=== PATIENT | female | born 1940 | race Caucasian/White ===

== ENCOUNTER 2018-08-02 16:16 | Emergency (ER) | payer MEDICARE, SELFPAY ==
[2018-08-02 16:20] VITALS: BP 138/56; PULSE 93; RESP 14; TEMP 37.1; O2SAT 100; BMI 21.2
--- NOTE | 2018-08-02 16:20 | ED.GENADULT ---
HPI - General Adult General Chief complaint: Ear Stated complaint: ear ache, sent by clinic Time Seen by Provider: 08/02/18 16:20 Source: patient Mode of arrival: ambulatory Limitations: no limitations History of Present Illness HPI narrative: 78-year-old female here for evaluation of right ear pain and also a rash to the right side of her face. Patient states the symptoms started about 3-4 days ago. No fevers. She went to the walk-in clinic who sent her here to the emergency department. Upon further evaluation after the exam she also states she has been having a sore throat. Has pain behind her right ear. He has sores in her mouth. Has been having a cough. She does have a history of asthma but has not been having any wheezing. Still tolerating oral intake. She states she has got a rashes started on the right side of her face within the past 24 hours. No eye symptoms. Related Data Previous Rx's Medication Instructions Recorded hydrocodone-acetaminophen [[place]] 1 tab PO Q4-6H PRN #7 tab 08/02/18 prednisone 60 mg PO DAILY 5 Days #15 tab 08/02/18 valacyclovir 1,000 mg PO TID 10 Days #30 tab 08/02/18 Allergies Allergy/AdvReac Type Severity Reaction Status Date / Time Penicillins Allergy Verified 08/02/18 16:24 Sulfa (Sulfonamide Allergy Verified 08/02/18 16:24 Antibiotics) Review of Systems Constitutional Denies fever(s) and Reports headache(s) Eyes Comments: Some irritation to the right eye ENT Ears, Nose, Mouth, and Throat: Denies vertigo, Denies dizziness, Reports headache(s), Denies disequilibrium and Reports sore throat Comments: Pain to the right ear, sores in the throat Cardiovascular Denies chest pain and Denies dyspnea Respiratory Reports cough, Denies dyspnea and Denies wheezing Gastrointestinal Gastrointestinal: Denies abdominal pain, Denies nausea and Denies vomiting Genitourinary Denies dysuria Integumentary/Breasts Comments: Rash on the right side of the face Neurologic Denies vertigo, Denies dizziness, Reports headache(s) and Denies disequilibrium Hematologic/Lymphatic Denies easy bleeding and Denies easy bruising Allergic/Immunologic Denies urticaria and Denies wheezing [facility] Medical History Asthma (Acute) Social History Smoking Status: Unknown if ever smoked Social History Smoking Status: Unknown if ever smoked Exam Initial Vital Signs Initial Vital Signs: Vital Signs Temperature 98.8 F 08/02/18 16:20 Pulse Rate 93 H 08/02/18 16:20 Respiratory Rate 14 08/02/18 16:20 Blood Pressure 138/56 L 08/02/18 16:20 Pulse Oximetry 100 08/02/18 16:20 Const General: cooperative, comfortable, well developed, well groomed and No acute distress Orientation: alert, awake and oriented x3 HENMT Head: normal to inspection and normocephalic Ears: right TM abnormal (Possibly 1 vesicle without erythema) and TM normal on the left Nose: external nose normal Face and sinus: normal facial exam Mouth: moist mucous membranes and other (Patient with white vesicles right cheek) Teeth and gingiva: dentition normal Throat: other (Consistent with postnasal drip) Eyes Eyelids: eyelids normal Conjunctivae: conjunctivae normal Sclera: sclerae normal Cornea: corneas normal and fluorescein used Pupils: PERRL EOM: EOM intact bilaterally Neck Lymphatic: lymphadenopathy (Right posterior cervical and anterior cervical) Resp Effort & Inspection: normal respiratory effort Auscultation: clear to auscultation bilaterally Cardio Rate: regular rate Rhythm: regular rhythm Skin Other: Patient with 1 patch of what appears to be very small vesicles on her right cheek. She has a 2nd patch approximately 1 cm in diameter above her right ear. Neuro General: alert and awake Cranial Nerves: CN's II-XI intact bilaterally Extrem General: normal to inspection and capillary refill normal Psych Appearance: grossly normal and well kempt Course Vital Signs - 8 hr 08/02/18 16:20 Temperature 98.8 F Pulse Rate 93 H Respiratory Rate 14 Blood Pressure 138/56 L Pulse Oximetry 100 Medical Decision Making MDM Narrative Medical decision making narrative: Patient is nontoxic appearing. She does have 2 patches on the right side of her face that make me concerned about shingles. She also has lesions in her mouth which could very well be aphthous ulcers. She is tolerating oral intake. Her right tympanic membrane is unremarkable except for what may be a very small vesicle. The external auditory canals unremarkable. I suspect that her ear pain is secondary to the lymph nodes on the right side. Fluorescein staining shows no uptake on the cornea. She has no lesions on her nose. 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 She also states she has been staying with her granddaughter recently had a child. I did inform her that she is contagious and she should avoid any contact with his child for concerns of spreading the shingles. Started her acyclovir and prednisone. Also sent home with pain medications patient was given return precautions and phone number to establish primary provider here in the area. She expressed understanding and agreement with plan. 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 I recommend that you contact the health human resources executive assistant here at the hospital at [phone] to help you with establishing a primary provider. You do need follow-up within the next week. Return to the emergency department for any new or worsening symptoms Prescriptions: New valacyclovir 1 gram tablet 1,000 mg PO TID 10 Days Qty: 30 RF: 0 prednisone 20 mg tablet 60 mg PO DAILY 5 Days Qty: 15 RF: 0 hydrocodone-acetaminophen [[place]] 5-325 mg tablet 1 tab PO Q4-6H PRN (Reason: pain) Qty: 7 RF: 0
== END 2018-08-02 17:00 | disposition home or self-care (01) ==
PROVIDERS: Emergency Provider Emergency Medicine
DX: B02.21 Postherpetic geniculate ganglionitis (principal); B02.8 Zoster with other complications
CPT/HCPCS: 99282; 99283